=== PATIENT | female | born 1990 | race Caucasian/White ===

== ENCOUNTER 2021-02-19 15:40 | Outpatient (REF) | payer MEDICAID, SELFPAY ==
[2021-02-19 20:56] LABS: HCT 46.1 % (36.0-46.0); HGB 15.2 g/dL (11.2-15.7); MCH 31.5 pg (27.0-33.0); MCV 95.6 fL (80-95); MPV 9.2 fL (8.0-11.0); Platelet Count 316 10^3/uL (130-400); RBC 4.82 10^6/uL (3.93-5.22); RDW 12.8 % (11.7-14.6); RDW-SD 45.3 fL; WBC 15.26 10^3/uL (4.4-10.8)
[2021-02-19 21:22] LABS: ALT 31 U/L (14-59); AST 19 U/L (15-37); Albumin 3.7 g/dL (3.4-5.0); Alkaline Phosphatase 68 U/L (46-116); Anion Gap 12.9 mmol/L (3-11); BUN 8 mg/dL (7-18); Bilirubin, Total 0.2 mg/dL (0.2-1.0); CO2 25.1 mmol/L (21.0-32.0); CREATININE 0.7 mg/dL (0.55-1.02); Calcium 8.6 mg/dL (8.5-10.1); Calculated LDL 109 mg/dL (<100); Chloride 105 mmol/L (98-107); Cholesterol 185 mg/dL (<200); Glucose 107 mg/dL (74-106); HDL Cholesterol 52 mg/dL (40-60); Potassium 3.5 mmol/L (3.5-5.1); Sodium 143 mmol/L (136-145); Total Protein 6.9 g/dL (6.4-8.2); Triglyceride 124 mg/dL (<150)
[2021-02-19 21:55] LABS: Hemoglobin A1C 5.3 % (<5.7)
== END 2021-02-19 15:41 | disposition home or self-care (01) ==
LOC: NCHCN 15:40
PROVIDERS: PCP Nurse Practitioner Family; Visit Provider Nurse Practitioner Family
DX: R53.83 Other fatigue (principal); Z13.1 Encounter for screening for diabetes mellitus; Z13.220 Encounter for screening for lipoid disorders
CPT/HCPCS: 80053; 80061; 85027; 83036; 84443

== ENCOUNTER 2021-03-07 20:11 | Outpatient (REF) | payer MEDICAID, SELFPAY ==
[2021-03-07 21:30] LABS: HCT 43.5 % (36.0-46.0); HGB 14.9 g/dL (11.2-15.7); MCH 31.2 pg (27.0-33.0); MCHC 34.3 % (32.0-36.0); MCV 91.2 fL (80-95); MPV 9.3 fL (8.0-11.0); Platelet Count 331 10^3/uL (130-400); RBC 4.77 10^6/uL (3.93-5.22); RDW 12.4 % (11.7-14.6); RDW-SD 41.5 fL
[2021-03-07 21:36] LABS: BUN 16 mg/dL (7-18); CREATININE 0.7 mg/dL (0.55-1.02); Calcium 9.1 mg/dL (8.5-10.1); Chloride 102 mmol/L (98-107); Glucose 105 mg/dL (74-106); Potassium 3.1 mmol/L (3.5-5.1); Sodium 139 mmol/L (136-145)
[2021-03-08 14:07] LABS: Abs Immature Grans 0.06 10^3/uL (0.0-0.06); Absolute Basophil Count 0.07 10^3/uL (0.0-0.2); Absolute Eosinophil Count 0.24 10^3/uL (0.0-0.7); Absolute Lymphocyte Count 4.51 10^3/uL (1.2-3.4); Absolute Neutrophil Count 8.29 10^3/uL (1.2-6.7); Basophils % 0.5; Eosinophils % 1.7; Immature Grans % 0.4; Lymphocytes % 31.4; Monocytes % 8.4; Neutrophils % 57.6
== END 2021-03-07 20:12 | disposition home or self-care (01) ==
LOC: NCHCN 20:11
PROVIDERS: PCP Nurse Practitioner Family; Visit Provider Nurse Practitioner Family
DX: I10 Essential (primary) hypertension (principal); D72.829 Elevated white blood cell count, unspecified
CPT/HCPCS: 80048; 85027; 85007

== ENCOUNTER 2022-12-18 15:20 | Outpatient (REF) | payer MEDICAID, SELFPAY ==
[2022-12-18 15:21] LABS: Abs Immature Grans 0.04 10^3/uL (0.0-0.06); Absolute Basophil Count 0.06 10^3/uL (0.0-0.2); Absolute Eosinophil Count 0.21 10^3/uL (0.0-0.7); Absolute Monocyte Count 0.94 10^3/uL (0.1-0.8); Absolute Neutrophil Count 7.31 10^3/uL (1.2-6.7); Basophils % 0.5; Eosinophils % 1.7; HCT 47.7 % (36.0-46.0); HGB 15.9 g/dL (11.2-15.7); Immature Grans % 0.3; Lymphocytes % 29.3; MCH 30.8 pg (27.0-33.0); MCHC 33.3 % (32.0-36.0); MCV 92 fL (80-95); MPV 9.3 fL (8.0-11.0); Monocytes % 7.8; Neutrophils % 60.4; Platelet Count 327 10^3/uL (130-400); RBC 5.16 10^6/uL (3.93-5.22); RDW-SD 44.4 fL
[2022-12-18 15:28] LABS: Absolute Lymphocyte Count 3.55 10^3/uL (1.2-3.4)
[2022-12-18 15:53] LABS: ALT 37 U/L (14-59); AST 23 U/L (15-37); Albumin 3.4 g/dL (3.4-5.0); Alkaline Phosphatase 92 U/L (46-116); BUN 8 mg/dL (7-18); Bilirubin, Total 0.3 mg/dL (0.2-1.0); CREATININE 0.7 mg/dL (0.55-1.02); Calcium 8.5 mg/dL (8.5-10.1); Chloride 106 mmol/L (98-107); Estimated GFR 117.77 (mL/min/1.73m2); Glucose 99 mg/dL (74-106); Lipase 42 U/L (16-77); Potassium 3.8 mmol/L (3.5-5.1); Sodium 141 mmol/L (136-145)
== END 2022-12-18 15:21 | disposition home or self-care (01) ==
LOC: NCHCN 15:20
PROVIDERS: PCP Nurse Practitioner Family; Visit Provider Family Medicine
DX: R07.89 Other chest pain (principal)
CPT/HCPCS: 80053; 83690; 85025